=== PATIENT | female | born 1980 ===

== ENCOUNTER 2022-06-27 16:31 | Emergency (ER) | payer OTHER ==
[~2022-06-27] VITALS: Ht 162.6 cm; Wt 100.0 kg
[2022-06-27] MEDS ORDERED: CEPH-510 PO (19:11)
[2022-06-27 19:14] VITALS: BP 137/82
== END 2022-06-27 19:21 | disposition home or self-care (01) ==
LOC: ER 16:31
DX: S60.410A Abrasion of right index finger, initial encounter (principal); W25.XXXA Contact with sharp glass, initial encounter; Y93.89 Activity, other specified; Y92.89 Other specified places as the place of occurrence of the external cause; Y99.8 Other external cause status